=== PATIENT | male | born 1960 | race Caucasian/White ===

== ENCOUNTER → 2020-07-18 | Day surgery (SDC) | payer BC ==
[~2020-07-18] MED LIST: LIDOCAINE 2% MPF 5 ML VIAL ONE; Ringers Lactate 1,000 ML IV ONE; propofoL 200 MG/20 ML VIAL IV ONE
--- OUTSIDE RECORDS SUMMARY | 2020-07-18 09:18 | XMS REPORT | Clinical Summary ---
:1960 Author Organization [facility] Address [address] [place] [address] Care Team Providers Name Role Phone Tayla Lyles MD Primary Care Provider [phone] Allergies No Known Active Allergies Medications Medication Sig Dispensed Refills Start Date End Date Status atorvastatin Take 10 mg 3 07/13/2016 Activ e (LIPITOR) 10 MG by mouth tablet once daily. mometasone USE 2 SPRAYS 3 07/06/2016 Activ e (NASONEX) 50 EACH NOSTRIL mcg/actuation EACH MORNING nasal spray montelukast Take 10 mg 3 02/26/2017 Active (SINGULAIR) 10 mg by mouth tablet once daily. CIALIS 2.5 mg TAKE 1 3 02/26/2017 Activ e tablet TABLET BY MOUTH NEEDED (ERECTILE DYSFUNCTION) folic acid TAKE 2 180 tablet 3 03/21/2020 Active (FOLVITE) 1 MG TABLETS BY tablet MOUTH EVERY DAY methotrexate 2.5 TAKE 7 84 tablet 1 05/27/2020 Ac tive MG tablet TABLETS BY 0 MOUTH EVERY WEEK. leflunomide TAKE 1 90 tablet 1 06/10/2020 Active (ARAVA) 20 MG TABLET BY 0 tablet MOUTH EVERY DAY folic acid TAKE 2 180 tablet 3 03/31/2019 Discont inued (FOLVITE) 1 MG TABLETS BY 0 tablet MOUTH EVERY DAY leflunomide TAKE 1 90 tablet 1 04/17/2019 Discont inued (ARAVA) 20 MG TABLET BY 0 tablet MOUTH EVERY DAY methotrexate 2.5 TAKE 7 84 tablet 0 07/14/2019 Di scontinued MG tablet TABLETS BY 0 MOUTH EVERY WEEK leflunomide TAKE 1 90 tablet 0 09/24/2019 Discont inued (ARAVA) 20 MG TABLET BY 0 (Reord er) tablet MOUTH EVERY DAY methotrexate 2.5 TAKE 7 84 tablet 0 10/01/2019 Di scontinued MG tablet TABLETS BY 0 (Reorder) MOUTH EVERY WEEK leflunomide Take 1 90 tablet 0 12/21/2019 Discont inued (ARAVA) 20 MG tablet (20 0 tablet mg total) by mouth daily. methotrexate 2.5 Take 7 84 tablet 0 12/21/2019 Di scontinued MG tablet tablets by 0 mouth every week. methotrexate 2.5 TAKE 7 84 tablet 0 03/11/2020 Di scontinued MG tablet TABLETS BY 0 MOUTH EVERY WEEK. leflunomide TAKE 1 90 tablet 0 03/17/2020 Discont inued (ARAVA) 20 MG TABLET BY 0 tablet MOUTH EVERY DAY Active Problems Problem Noted Date Tarsal tunnel syndrome of left side 04/20/2019 Paresthesia of both feet 03/04/2017 Rheumatoid arthritis of multiple sites without organ o r system involvement 09/03/2016 with positive serology Hyperlipidemia 09/03/2016 Encounters Date Type Specialty Care Team Description 06/10/2020 Refill Rheumatology Yuliet Bullock MD 05/27/2020 Refill Rheumatology Yuliet Bullock MD 04/28/2020 Office Visit Rheumatology Yuliet Bullock MD Rheumatoi d arthritis of multiple sites without organ or system involvement with positive serology (Primary Dx); Immunosuppresse d status (HCC); High risk medic ation use 04/28/2020 Travel 03/20/2020 Refill Rheumatology Yuliet Bullock MD 03/17/2020 Refill Rheumatology Yuliet Bullock MD 03/11/2020 Refill Rheumatology Yuliet Bullock MD 12/21/2019 Refill Rheumatology Tere Person MA 10/21/2019 Office Visit Rheumatology Yuliet Bullock MD Rheumatoi d arthritis of multiple sites without organ or system involvement with positive serology (Primary Dx); Immunosuppresse d status (HCC) 10/01/2019 Refill Rheumatology Yuliet Bullock MD 09/24/2019 Refill Rheumatology Yuliet Bullock MD after 07/18/2019 Medical History Medical History Date Comments Rheumatoid arthritis (HCC) RF negative Hyperlipidemia Family History Medical History Relation Name Comments No Known Problems Father Heart disease Mother No Known Problems Sister Relation Name Status Comments Father Mother Sister Social History Tobacco Use Types Packs/Day Years Used Date Never Smoker Smokeless Tobacco: Never Used Alcohol Use Drinks/Week oz/Week Comments Yes 3 Cans of beer 3.0 Sex Assigned at Date Recorded Not on file Last Filed Vital Signs Vital Sign Reading Time Taken Comments Blood Pressure 132/80 04/28/2020 9:46 AM CDT Pulse 77 04/28/2020 9:46 AM CDT Temperature 36.8 C (98.2 F) 04/28/2020 9:46 AM CDT Respiratory Rate - - Oxygen Saturation 97% 04/28/2020 9:46 AM CDT Inhaled Oxygen Concentration - - Weight 89.4 kg (197 lb) 04/28/2020 9:46 AM CDT Height - - Body Mass Index 26.72 09/24/2018 1:51 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 system involvement with positive serology SEDIMENTATION RATE Routine 04/28/2020 10:05 Rheumatoid Resul ts for this AM CDT arthritis of procedure are i n multiple sites the results without organ or section. system involvement with positive serology COMPREHENSIVE Routine 04/28/2020 10:05 Rheumatoid Results fo r this METABOLIC PANEL AM CDT arthritis of procedure ar e in multiple sites the results without organ or section. system involvement with positive serology CBC WITH PLATELET AND Routine 04/28/2020 10:05 Rheumatoid Re sults for this DIFFERENTIAL AM CDT arthritis of procedure are i n multiple sites the results without organ or section. system involvement with positive serology C-REACTIVE PROTEIN Routine 10/21/2019 3:30 Rheumatoid Resul ts for this PM [employer] arthritis of procedure are i n multiple sites the results without organ or section. system involvement with positive serology SEDIMENTATION RATE Routine 10/21/2019 3:30 Rheumatoid Resul ts for this PM [employer] arthritis of procedure are i n multiple sites the results without organ or section. system involvement with positive serology after 07/18/2019 Results Sedimentation rate (04/28/2020 10:05 AM CDT)Only the most recent of2 results within the time period is included. Pathologist Sig nature Sedimentation rate 8 0 - 30 mm/hr [facility] Specimen Blood Narrative Performed At Performed at: 01 - [facility] [address] [place], [place] [address] 143 Turnaround Engineer: Padilla Heredia MD, Phone: [phone] Performing Organization Address City/State/ZIP Code Phon e Number [facility] CBC with platelet and differential (04/28/2020 10:05 AM CDT) Pathologist Sig nature WBC 4.8 3.4 - 10.8 x10E3/uL [facility] RBC 4.93 4.14 - 5.80 x10E6/uL [facility] HGB 14.9 13.0 - 17.7 g/dL [facility] HCT 46.9 37.5 - 51.0 % [facility] MCV 95 79 - 97 fL [facility] MCH 30.2 26.6 - 33.0 pg [facility] MCHC 31.8 31.5 - 35.7 g/dL [facility] RDW 12.7 11.6 - 15.4 % [facility] Platelet count 228 150 - 450 x10E3/uL [facility] Neutrophils 55 Not Estab. % [facility] Lymphocytes 24 Not Estab. % [facility] Monocytes 12 Not Estab. % [facility] Eosinophils 6 Not Estab. % [facility] Basophils 2 Not Estab. % [facility] Neutrophils, absolute 2.7 1.4 - 7.0 x10E3/uL [facility] Lymphocytes, absolute 1.2 0.7 - 3.1 x10E3/uL [facility] Monocytes, absolute 0.6 0.1 - 0.9 x10E3/uL [facility] Eosinophils, absolute 0.3 0.0 - 0.4 x10E3/uL [facility] Basophils, absolute 0.1 0.0 - 0.2 x10E3/uL [facility] Immature granulocytes 1 Not Estab. % [facility] Immature grans (abs) 0.0 0.0 - 0.1 x10E3/uL [facility] Specimen Blood Narrative Performed At Performed at: [address] [place] [id number] Turnaround Engineer: Padilla Heredia MD, Phone: [phone] Performing Organization Address [facility] e Number [facility] C-reactive protein (04/28/2020 10:05 AM CDT)Only the most recent of2 results within the time period is included. Pathologist Sig nature CRP <1 0 - 10 mg/L [facility] Specimen Blood Narrative Performed At Performed at: [address] [place] [address] [id number] Turnaround Engineer: Padilla Heredia MD, Phone: [phone] Performing Organization Address [facility] e Number [facility] Comprehensive metabolic panel (04/28/2020 10:05 AM CDT) Pathologist Sig nature Glucose 87 65 - 99 mg/dL [facility] BUN 11 8 - 27 mg/dL [facility] Creatinine 0.80 0.76 - 1.27 mg/dL [facility] EGFR Non-Afr. Nigerien 97 >59 mL/min/1.73 [facility] EGFR 112 >59 mL/min/1.73 [facility] BUN/creatinine ratio 14 10 - 24 [facility] Sodium 141 134 - 144 mmol/L [facility] Potassium 4.3 3.5 - 5.2 mmol/L [facility] Chloride 104 96 - 106 mmol/L [facility] CO2 22 20 - 29 mmol/L [facility] Calcium 9.0 8.6 - 10.2 mg/dL [facility] Protein 6.5 6.0 - 8.5 g/dL [facility] Albumin, S 4.5 3.8 - 4.9 g/dL [facility] Globulin, total 2.0 1.5 - 4.5 g/dL [facility] Albumin/globulin ratio 2.3 (H) 1.2 - 2.2 [facility] Total bilirubin 0.5 0.0 - 1.2 mg/dL [facility] Alkaline phosphatase 90 39 - 117 IU/L [facility] AST 19 0 - 40 IU/L [facility] ALT 21 0 - 44 IU/L [facility] Specimen Blood Narrative Performed At Performed at: - [facility] [address] [place], [place] [id number] 143 Turnaround Engineer: Padilla Heredia MD, Phone: [phone] Performing Organization Address City/State/ZIP Code Phon e Number [facility] after 07/18/2019 Advance Directives For more information, please contact: [phone] Type Date Recorded 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
--- OUTSIDE RECORDS SUMMARY | 2020-07-18 09:19 | XMS REPORT | Continuity of Care Document ---
:1960 Author Organization [facility] t Address [facility] [address] [place] [address] Care Team Providers Name Role Phone Trupti ALEMAN, A Primary Care Physician Kobe ALEMAN Attending Clinician Trupti ALEMAN, A Attending Clinician Raza RICHARD Attending Clinician Unavailable Payers Payer Name Policy Type Policy Effective Date Expiration Date [facility] ce Number [id number] CHOICE 2014 [place] PPO/FEDERAL 670 00:00:00 [employer] EMPL PPOxxxxxxxxxxx7 -Pr esentPPO Problems Condition Condition Condition Status Onset Resolution Last Treating Co mments Source Name Details Category Date Date Treatment Clinician Date Tarsal Tarsal Disease Active [place] tunnel tunnel 8-26 [facility] syndrome syndrome 00:00: st of left of left 00 side side Paresthesi Paresthesi Disease Active [place] a of both a of both 7-10 [facility] radha feet feet 00:00: st 00 Rheumatoid Rheumatoid Disease Active [place] arthritis arthritis 09-03 Meth radha of of 00:00: st multiple multiple 00 sites sites without without organ or organ or system system involvemen involvemen t with t with positive positive serology serology Hyperlipid Hyperlipid Disease Active [place] emia emia 09-03 [facility] 00:00: st 00 Allergies, Adverse Reactions, Alerts This patient has no known allergies or adverse reactions. Family History Family Member Diagnosis Comments Start Date Stop Date Source Natural father No Known Problems Zoya chiqui Cutlerist Natural mother Heart disease [facility] Natural sister No Known Problems Zoya chiqui Cutlerist Social History Social Habit Start Date Stop Date Quantity Comments Source Sex Assigned At [facility] ethodist Tobacco use and 2019-10-21 2019-10-21 Never used [facility] ethodist exposure 00:00:00 00:00:00 Alcohol intake 2019-10-21 2019-10-21 Current drinker [place] [facility] 00:00:00 00:00:00 of alcohol (finding) Smoking Status Start Date Stop Date Source Never smoker [place] Leon Medications Ordered Filled Start Stop Current Ordering Indication Dosage Frequency Signature Comments Components Source Medication Medication Date Date Medication? Clinician (SIG) Name Name leflunomide 2019-08- Yes TAKE 1 [place] ston (ARAVA) 20 0-16 10-16 TABLET BY Met [facility] MG tablet 00:00: 23:[address] 00 :00 EVERY DAY methotrexat 2019-08- Yes TAKE 7 [place] ston e 2.5 MG 0-02 10-02 TABLETS BY Meth radha tablet 00:00: 23:[address] 00 :00 EVERY WEEK. folic acid Yes TAKE 2 [place] (FOLVITE) 1 7-27 TABLETS BY Me thodi MG tablet 00:00: MOUTH st 00 EVERY DAY leflunomide 2019-2019- No TAKE 1 [place]oya ston (ARAVA) 20 7-23 10-16 TABLET BY Met hodi MG tablet 00:00: 00:[address] 00 :00 EVERY DAY methotrexat 2019-2019- No TAKE 7 [place] ston e 2.5 MG 7-17 10-02 TABLETS BY Meth radha tablet 00:00: 00:[address] 00 :00 EVERY WEEK. leflunomide 2019- 2020- No 20mg QD Take 1 [place] st[place] (ARAVA) 20 4-27 07-23 tablet (20 [facility] MG tablet 00:00: 00:00 mg total) st 00 :00 by mouth daily. methotrexat 2019-2019- No Take 7 Zoya ston e 2.5 MG 4-27 07-17 tablets by Meth radha tablet 00:00: 00:[address] 00 :00 every week. methotrexat 2020- No TAKE 7 Zoya ston e 2.5 MG 2-01 27-27 TABLETS BY Meth radha tablet 00:00: 00:[address] 00 :00 EVERY WEEK leflunomide 2020- No TAKE 1 [place] ston (ARAVA) 20 09-24-27 TABLET BY Met hodi MG tablet 00:00: 00:[address] 00 :00 EVERY DAY methotrexat 2018-08 2020- No TAKE 7 Zoya ston e 2.5 MG 1- TABLETS BY Meth radha tablet 00:00: 00:[address] 00 :00 EVERY WEEK leflunomide 2020- No TAKE 1 [place] st[place] (ARAVA) 20 04-17-30 TABLET BY Met hodi MG tablet 00:00: 00:[address] 00 :00 EVERY DAY folic acid 2019- No TAKE 2 [place] (FOLVITE) 1 8-27 TABLETS BY M ethodi MG tablet 00:00: 00:[address] 00 :00 EVERY DAY montelukast Yes 10mg QD Take 10 mg [place] (SINGULAIR) 7-04 by mouth Meth radha 10 mg 00:00: once st tablet 00 daily. CIALIS 2.5 Yes TAKE 1 [place] mg tablet 7-04 TABLET BY Metho di 00:00: MOUTH st 00 NEEDED (ERECTILE DYSFUNCTIO N) atorvastati 2015-08 Yes 10mg QD Take 10 mg [place] n (LIPITOR) 1-18 by mouth Meth radha 10 MG 00:00: once st tablet 00 daily. mometasone 2015-08 Yes USE 2 [place] (NASONEX) 1-11 SPRAYS Methodi 50 00:00: EACH st mcg/actuati 00 NOSTRIL on nasal EACH spray MORNING Vital Signs Vital Name Observation Time Observation Value Comments Source Systolic blood 2020-04-28 09:46:00 132 mm[Hg] [place] [facility] pressure Diastolic blood 2020-04-28 09:46:00 80 mm[Hg] [place] [facility] pressure Heart rate 2020-04-28 09:46:00 77 /min Brett [facility] Body temperature 2020-04-28 09:46:00 36.78 Sherrill Jf Diaz Body weight 2020-04-28 09:46:00 89.359 kg Brett Diaz BMI 2020-04-28 09:46:00 26.72 kg/m2 Brett Diaz Oxygen saturation in 2020-04-28 09:46:00 97 /min Brett Diaz Arterial blood by Pulse oximetry Procedures Procedure Date / Time Performed Performing Clinician Sourc e CBC WITH PLATELET AND 2020-04-28 10:05:00 Charles Bullock [facility] DIFFERENTIAL COMPREHENSIVE METABOLIC 2020-04-28 10:05:00 Charles Bullock [employer] PANEL SEDIMENTATION RATE 2020-04-28 10:05:00 Charles Bullock ethodist C-REACTIVE PROTEIN 2020-04-28 10:05:00 Charles Bullock ethodist SEDIMENTATION RATE 2019-10-21 15:30:00 Charles Bullock ethodist C-REACTIVE PROTEIN 2019-10-21 15:30:00 Charles Bullock ethodist Plan of Care Planned Activity Planned Date Details Comments Source Future Scheduled 2020-03-26 INFLUENZA VACCINE [place] [facility] Test 00:00:00 [code = INFLUENZA VACCINE] Future Scheduled 2010 COLONOSCOPY SCREENING [place] [facility] Test 00:00:00 [code = COLONOSCOPY SCREENING] Future Scheduled 2010 SHINGLES VACCINES [place] [facility] Test 00:00:00 (#1) [code = SHINGLES VACCINES (#1)] Encounters Start End Encounter Admission Attending Care Care Encounter Source Date/Time Date/Time Type Type Clinicians Facility Department ID 2020-05-11 2020-05-11 Refill DERRICK Lyles [id number] 00:00:00 00:00:00 Tayla Rosales [id number] [place] 4.2.7.2.686 Justen [id number] [address] 2020-04-28 2020-04-28 Outpatient [facility] [id number] [address] [place] 00:00:00 00:00:[address] [facility] 2019-11-25 2019-11-25 Refill DERRICK Lyles [id number] 00:00:00 00:00:00 Tayla Pereaton 350.1.13.10 [place] 4.2.7.2.686 Professio [phone] [address] 2019-11-22 2019-11-22 [facility] [id number] 00:00:00 00:00:00 Taylamarely Pereaton 350.1.13.10 [place] 4.2.7.2.686 Professio [id number] [address] 2019-11-19 2019-11-19 Refill [facility] [id number] 00:00:00 00:00:00 Taylamarely Pereaton 350.1.13.10 [place] 4.2.7.2.686 Professio [id number] [address] 2019-11-05 2019-11-05 Telephone [facility] [id number] 00:00:00 00:00:00 Tayla Pereaton 350.1.13.10 [place] 4.2.7.2.686 Professio [id number] [address] 2019-10-21 2019-10-21 [facility] [id number] [address] [place] [address] 00:00:00 00:00:00 CHARLES [address] Results Test Description Test Time Test Comments Results Result Comments Source C-reactive protein 2020-04-29 12:09:00 Test Item Value Reference Range Interpretation Comme nts CRP (test code = 1988-5) <1 0-10 LENKA (test code = LENKA) Performed at: [facility] [address] [place], [place] [id number] Director: Padilla Heredia MD, Phone: [phone] [place] MethodistComprehensive metabolic [id number] 08:13:00 Test Item Value Reference Range Interpretation Comments Glucose (test code = 87 mg/dL 65-99 2345-7) BUN (test code = 3094-0) 11 mg/dL 8-27 Creatinine (test code = 0.80 mg/dL 0.76-1.27 2160-0) EGFR Non-Afr. Malian 97 mL/min/1.73 >59 (test code = 2775) EGFR 112 mL/min/1.73 >59 (test code = 2774) BUN/creatinine ratio 14 10-24 (test code = 3097-3) Sodium (test code = 141 mmol/L 529-323 1288-2) Potassium (test code = 4.3 mmol/L 3.5-5.2 2823-3) Chloride (test code = 104 mmol/L 96-106 2075-0) CO2 (test code = 2027-9) 22 mmol/L 20-29 Calcium (test code = 9.0 mg/dL 8.6-10.2 08186-7) Protein (test code = 6.5 g/dL 6-8.5 2885-2) Albumin, S (test code = 4.5 g/dL 3.8-4.9 1751-7) Globulin, total (test 2.0 g/dL 1.5-4.5 code = 59206-5) Albumin/globulin ratio 2.3 1.2-2.2 H (test code = 1759-0) Total bilirubin (test 0.5 mg/dL 0-1.2 code = 1975-2) Alkaline phosphatase 90 39- 117 IU/L (test code = 6768-6) AST (test code = 1920-8) 19 0- 40 IU/L ALT (test code = 1742-6) 21 0- 44 IU/L LENKA (test code = LENKA) Performed at: [facility] [id number] Director: Padilla Heredia MD, Phone: [phone] Lab Interpretation (test Abnormal code = 81493-1) [facility] with platelet and [id number] 08:13:00 Test Item Value Reference Range Interpretation Comments WBC (test code = 4.8 3.4- 10.8 x10E3/uL 6690-2) RBC (test code = 4.93 4.14- 5.80 x10E6/uL 789-8) HGB (test code = 14.9 g/dL 13-17.7 718-7) HCT (test code = 46.9 % 37.5-51 4544-3) MCV (test code = 95 fL 79-97 787-2) MCH (test code = 30.2 pg 26.6-33 785-6) MCHC (test code = 31.8 g/dL 31.5-35.7 786-4) RDW (test code = 12.7 % 11.6-15.4 788-0) Platelet count (test 228 150- 450 x10E3/uL code = 777-3) Neutrophils (test code 55 % Not Estab. = 770-8) Lymphocytes (test code 24 % Not Estab. = 736-9) Monocytes (test code = 12 % Not Estab. 5905-5) Eosinophils (test code 6 % Not Estab. = 713-8) Basophils (test code = 2 % Not Estab. 706-2) Neutrophils, absolute 2.7 1.4- 7.0 x10E3/uL (test code = 751-8) Lymphocytes, absolute 1.2 0.7- 3.1 x10E3/uL (test code = 731-0) Monocytes, absolute 0.6 0.1- 0.9 x10E3/uL (test code = 742-7) Eosinophils, absolute 0.3 0.0- 0.4 x10E3/uL (test code = 711-2) Basophils, absolute 0.1 0.0- 0.2 x10E3/uL (test code = 704-7) Immature granulocytes 1 % Not Estab. (test code = 76012-1) Immature grans (abs) 0.0 0.0- 0.1 x10E3/uL (test code = 81075-2) LENKA (test code = LENKA) Performed at: [address] [place] [id number] Director: Padilla Heredia MD, Phone: [phone] [place] MethodistSedimentation [id number] 08:13:00 Test Item Value Reference Range Interpretation Comments Sedimentation rate (test 8 0- 30 mm/hr code = 4537-7) LENKA (test code = LENKA) Performed at: [address] [place] [id number] Director: Padilla Heredia MD, Phone: [phone] [place] [facility]ism
--- NOTE | 2020-07-18 10:07 | ENDO RPT ---
[address], [address] COLONOSCOPY PROCEDURE REPORT EXAM DATE: 07/18/2020 PATIENT NAME: Ky Yan MR #: [id number] BIRTHDATE: 1960 ATTENDING: Maciel Saucedo DR STATUS: outpatient FUNERAL SERVICE MANAGER: Christine Vergara RN and Yanni Moreno RN INDICATIONS: The patient is a 60 yr old Male here for a colonoscopy due to colon cancer screening PROCEDURE PERFORMED: Colonoscopy and Screening Colonoscopy MEDICATIONS: Per Anesthesia. ESTIMATED BLOOD LOSS: None CONSENT: The patient understands the risks and benefits of the procedure and understands that these risks include, but are not limited to: sedation, allergic reaction, infection, perforation and/or bleeding. Alternative means of evaluation and treatment include, among others: physical exam, x-rays, and/or surgical intervention. The patient elects to proceed with this endoscopic procedure. DESCRIPTION OF PROCEDURE: During intra-op preparation period all mechanical medical equipment was checked for proper function. Hand hygiene and appropriate measures for infection prevention was taken. Procedure, possible complications, alternatives including, but not limited to possibility of bleeding, perforation, tear, infection, sepsis, need for surgery, need for blood transfusion, were explained to the patient. After the risks, benefits and alternatives of the procedure were thoroughly explained, Informed consent was verified, confirmed and timeout was successfully executed by the treatment team. The patient was placed in the left lateral position. A digital rectal exam was performed and revealed external hemorrhoids and A digital rectal exam was performed and revealed internal hemorrhoids. After appropriate level of anesthesia, the scope was passed. The [id number] ([id number]) endoscope was introduced through the anus and advanced to the cecum, which was identified by both the appendix and ileocecal valve. The quality of the prep was fair. The instrument was then slowly withdrawn as the colon was fully examined. Scope withdrawal time was 9 minutes. COLON FINDINGS: A normal appearing cecum, ileocecal valve, and appendiceal orifice were identified. the ascending, transverse, descending, sigmoid colon, and rectum appeared unremarkable. Retroflexed views revealed no abnormalities. The scope was then completely withdrawn from the patient and the procedure terminated. ADVERSE EVENTS: There were no complications. IMPRESSIONS: A normal appearing cecum, ileocecal valve, and appendiceal orifice were identified. the ascending, transverse, descending, sigmoid colon, and rectum appeared unremarkable RECOMMENDATIONS: 1. avoid NSAIDS for 2 weeks 2. await biopsy results 3. fiber rich diet 4. Monitor for any evidence of rectal bleeding. 5. yearly hemoccult starting in 4 years 6. hemorrhoidal hygiene 7. increase dietary water RECALL: Return in 10 year(s) for Colonoscopy. Fecal FIT test in 4 years - stool test for polyps / cancer Maciel Saucedo DR eSigned: Maciel Saucedo DR 07/18/2020 10:06 AM cc: CPT CODES: ICD9 CODES: PATIENT NAME: Yan Ky Laxmi MR#: [id number]
[2020-07-18 10:36] VITALS: BP 121/78; TEMP 97.4; O2SAT 98
== END ==
LOC: OR 08:19
PROVIDERS: ATTEND Surgery
PROC: 0DJD8ZZ Inspection of Lower Intestinal Tract, Via Natural or Artificial Opening Endoscopic (ICD-10-PCS; principal; 2020-07-18 09:15)
DX: Z12.11 Encounter for screening for malignant neoplasm of colon (principal); M19.90 Unspecified osteoarthritis, unspecified site
CPT/HCPCS: 45378; J2704 ×2; J7120